=== PATIENT | female | born 1950 | race Caucasian/White ===

== ENCOUNTER 2017-01-14 20:50 | Emergency (ER) | payer MEDICARE, OTHER ==
[2017-01-14 20:59] VITALS: RESP 18; TEMP 99.6
[2017-01-14] MEDS ORDERED: SODIUM CHLORIDE 0.9% 1,000 ML IV STA (21:35)
[2017-01-14] MEDS ORDERED: ONDANSETRON 4 MG/2 ML VIAL IVP STA (21:35)
[2017-01-14] MEDS ORDERED: SODIUM CHLORIDE 0.9% 2,000 ML IV STA (21:35)
[2017-01-14] MEDS ORDERED: PANTOPRAZOLE 40 MG/10 ML VIAL IVP STA (21:35)
--- NOTE | 2017-01-14 21:41 | ED ---
General Adult HPI - General Chief complaint: Abdominal Pain Stated complaint: Vomiting/Abd Pain Time Seen by Provider: 01/14/17 21:20 Source: patient, family, RN notes reviewed, old records reviewed Mode of arrival: wheelchair Limitations: no limitations - History of Present Illness Initial comments: Chief complaint history of present illness is a 66-year-old female here with . The patient reports she's had nausea vomiting with significant lower abdominal pain starting several hours ago. She's been having difficulty having bowel movements. She has taken Dulcolax to assist without significant production. She does have history diverticulosis never has had diverticulitis. Also history of major depression. - Related Data Home Medications Medication Instructions Recorded Confirmed Atorvastatin [Lipitor] 10 mg PO HS 06/10/14 01/14/17 Calcium Carbonate/Vitamin D3 1 tab PO DAILY 06/10/14 01/14/17 [Caltrate 600 + D Tablet] Cholecalciferol [Vitamin D3] 1,000 unit PO DAILY 06/10/14 01/14/17 Levothyroxine Sodium [Synthroid] 100 mcg PO [id number] 06/10/14 01/14/17 Duglas Pro [place] 3 500 mg PO DAILY 01/14/17 01/14/17 Biotin 5 mg PO DAILY 01/14/17 01/14/17 Clopidogrel [Plavix] 75 mg PO DAILY 01/14/17 01/14/17 Deplin (Unknown Dose) 1 dose PO DAILY 01/14/17 01/14/17 LORazepam [Ativan] 0.5 mg PO DAILY 01/14/17 01/14/17 Prolia (Unknown Dose) 1 dose INJ Q180D 01/14/17 01/14/17 Vit C/E/Zn/Coppr/Lutein/Zeaxan 2 cap PO DAILY 01/14/17 01/14/17 [Preservision Areds 2 Softgel] buPROPion HCL [Wellbutrin XL] 300 mg PO QAM 01/14/17 01/14/17 busPIRone HCL [Buspar] 7.5 mg PO DAILY 01/14/17 01/14/17 Previous Rx's Medication Instructions Recorded Ondansetron Odt [Zofran ODT] 4 mg PO Q8HR PRN #5 tab 01/15/17 Allergies Allergy/AdvReac Type Severity Reaction Status Date / Time amoxicillin [Amoxicillin] Allergy Severe Nausea & Verified 01/14/17 21:09 Vomiting/ Severe Headache codeine Allergy Nausea & Verified 01/14/17 21:09 Vomiting meperidine HCl [From Demerol] Allergy Nausea & Verified 01/14/17 21:09 Vomiting Review of Systems ROS Statement: Those systems with pertinent positive or pertinent negative responses have been documented in the HPI. Review of systems. The patient is extremely dry, mild headache which is chronic. No stiff neck. No chest pain or shortness of breath. She has lower abdominal pain that doubles over in pain when he comes at home less so at this time. Having difficulty having bowel movements. Nausea and vomiting. Decreased urine output. No complaints of any numbness or tingling. All systems were reviewed. Past medical problems significant for major depression, Edgar's, macular degeneration, osteoporosis. The patient's surgeries knee Surgery tubal ligation , bilateral shoulders. Family history significant for cancers including grandfather and grandmother 1 with: The other breast cancer. Patient has ALLERGIES to amoxicillin codeine and meperidine these make her vomit. Patient quit smoking over 20 years ago denies alcohol use. ROS Other: All systems not noted in ROS Statement are negative. 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 HX EDGAR' S. ALSO CHRONIC LOW WBC'S-HAS SEEN SPECIALIST. HX MACULAR DEGENERATION-WET AMD - GETS CHECKED EVERY 2 MONTHS BY SPECIALIST-LUCENTIS INJECTION IN 01/2014 FOR BLEEDING IN EYE. HX OSTEOPOROSIS- GETS PROLIA INJ.EVERY [address] LILIAN GROVER History of Any Multi-Drug Resistant Organisms: None Reported Past Surgical History: Orthopedic Surgery, Tubal Ligation Additional Past Surgical History / Comment(s): CYNTHIA SHOULDERS - ROTATOR CUFF Past Anesthesia/Blood Transfusion Reactions: No Reported Reaction Past Psychological History: Depression Smoking Status: Former smoker Past Alcohol Use History: None Reported Additional Past Alcohol Use History / Comment(s): 4-5 X A WEEK HAS A GLASS OF WINE. SMOKED FROM AGE 18 OFF & ON- QUIT 1995 Past Drug Use History: None Reported General Exam - General Exam Comments Initial Comments: General: The patient is awake and alert, complaining of very low abdominal pain becomes severe at times. Nausea and vomiting. Vital signs temp 99.6 pulse 1:15 rate 18 pulse ox 90% room air blood pressure 140/79. Elevated systolic noted. The patient is in pain. Eye: Pupils are equal, round and reactive to light, extra-ocular movements are intact ; there is normal conjunctiva bilaterally. No signs of icterus. History of wet and deep. Ears, nose, mouth and throat: Dry mucous membranes. Dry tongue. Neck: The neck is supple, there is no tenderness , no anterior cervical lymphadenopathy. Cardiovascular: Tachycardic heart rate, 1:15. No murmur, rub or gallop is appreciated. Respiratory: Lungs are clear to auscultation, respirations are non-labored, breath sounds are equal. No wheezes, stridor, rales, or rhonchi. Gastrointestinal: Soft, non-distended, mild tenderness but no guarding with deep palpation of the lower abdomen more pain on the right than the left. Back: No complaint of back or flank pain. Musculoskeletal: Normal ROM, no tenderness, There is no pedal edema. There is no calf tenderness or swelling. Sensation intact. Neurological: No neuro deficits. Skin: Skin is warm and dry and no rashes or lesions are noted. Psychiatric: History of major depression. Not depressed now. States she's on medication which is helping. Limitations: no limitations Course Vital Signs 01/14/17 20:57 Temperature 99.6 F Pulse Rate 115 H Respiratory 18 Rate Blood Pressure 148/79 O2 Sat by Pulse 98 Oximetry Medical Decision Making - Medical Decision Making Medical decision making; patient's white count 8.8 hemoglobin 14 hematocrit 42.9 , potassium 4.0, BUN 21 creatinine 0.8 with a GFR greater than 60. Glucose 112. Urine shows 6 rbc's 1 white cell. Amylase vital for lipase mildly elevated 351 X-ray of the abdomen was done and reviewed by radiologist his impression is the bowel gas pattern is normal. There is no sign of intestinal obstruction or peritoneum. Fecal pattern is normal. There is no sign of a mass. Lung bases are clear. There are no pathologic calcifications over the kidneys. Impression ; nonacute abdomen. As read by Dr. Wilkinson CT of the abdomen was done and reviewed by radiologist significant findings include moderate colonic stool suggestive of constipation. Bowel is non- dilated. No findings to suggest acute appendicitis. A distended urinary bladder appears thin wall. No calcified bladder calcified calculi are identified. No free air. No significant fluid collections. Final impression is no acute findings. Moderate colonic stool suggestive of constipation. As read by stat rad Dr. Kellogg The patient had discussed constipation cramps she reports she's not been drinking water lately. She has been taking stool softeners which may be increasing the push through the intestine causing the acute cramps. The patient was hydrated and states she is feeling significantly better at this time. We discussed ways to manage her constipation and cramping. She'll follow -up with family physician. - Lab Data Result diagrams: 01/14/17 21:23 01/14/17 21:23 Lab Results 01/14/17 01/14/17 01/14/17 Range/Units 21:23 21:23 21:23 WBC 8.8 (3.8-10.6) k/uL RBC 4.62 (3.80-5.40) m/uL Hgb 14.2 (11.4-16.0) gm/dL Hct 42.9 (34.0-46.0) % MCV 92.8 (80.0-100.0) fL MCH 30.7 (25.0-35.0) pg MCHC 33.1 (31.0-37.0) g/dL RDW 12.1 (11.5-15.5) % Plt Count 195 (150-450) k/uL Neutrophils % 93 % Neutrophils % (Manual) 94.0 % Lymphocytes % 2 % Lymphocytes % (Manual) 1.0 % Monocytes % 2 % Monocytes % (Manual) 3.0 % Eosinophils % 2 % Eosinophils % (Manual) 2.0 % Basophils % 0 % Neutrophils # 8.2 H (1.3-7.7) k/uL Neutrophils # (Manual) 8.3 H (1.3-7.7) k/uL Lymphocytes # 0.2 L (1.0-4.8) k/uL Lymphocytes # (Manual) 0.1 L (1.0-4.8) k/uL Monocytes # 0.2 (0-1.0) k/uL Monocytes # (Manual) 0.3 (0-1.0) k/uL Eosinophils # 0.2 (0-0.7) k/uL Eosinophils # (Manual) 0.2 (0-0.7) k/uL Basophils # 0.0 (0-0.2) k/uL Nucleated RBCs 0 (0-0) /100 WBC Manual Slide Review Performed Sodium 141 (137-145) mmol/L Potassium 4.0 (3.5-5.1) mmol/L Chloride 105 (98-107) mmol/L Carbon Dioxide 25 (22-30) mmol/L Anion Gap 11 mmol/L BUN 21 H (7-17) mg/dL Creatinine 0.80 (0.52-1.04) mg/dL Est GFR (MDRD) Af Amer >60 (>60 ml/min/1.73 sqM) Est GFR (MDRD) Non-Af >60 (>60 ml/min/1.73 sqM) Glucose 112 H (74-99) mg/dL Plasma Lactic Acid Ta 1.3 (0.7-2.0) mmol/L Calcium 9.3 (8.4-10.2) mg/dL Total Bilirubin 0.7 (0.2-1.3) mg/dL AST 26 (14-36) U/L ALT 31 (9-52) U/L Alkaline Phosphatase 35 L (38-126) U/L Total Protein 6.8 (6.3-8.2) g/dL Albumin 4.3 (3.5-5.0) g/dL Amylase 104 (30-110) U/L Lipase 351 H (23-300) U/L Urine Color Urine Appearance (Clear) Urine pH (5.0-8.0) Ur Specific [place] (1.001-1.035) Urine Protein (Negative) Urine Glucose (UA) (Negative) Urine Ketones (Negative) Urine Blood (Negative) Urine Nitrate (Negative) Urine Bilirubin (Negative) Urine Urobilinogen (<2.0) mg/dL Ur Leukocyte Esterase (Negative) Urine RBC (0-5) /hpf Urine WBC (0-5) /hpf Urine Mucus (None) /hpf 01/14/17 Range/Units 21:23 WBC (3.8-10.6) k/uL RBC (3.80-5.40) m/uL Hgb (11.4-16.0) gm/dL Hct (34.0-46.0) % MCV (80.0-100.0) fL MCH (25.0-35.0) pg MCHC (31.0-37.0) g/dL RDW (11.5-15.5) % Plt Count (150-450) k/uL Neutrophils % % Neutrophils % (Manual) % Lymphocytes % % Lymphocytes % (Manual) % Monocytes % % Monocytes % (Manual) % Eosinophils % % Eosinophils % (Manual) % Basophils % % Neutrophils # (1.3-7.7) k/uL Neutrophils # (Manual) (1.3-7.7) k/uL Lymphocytes # (1.0-4.8) k/uL Lymphocytes # (Manual) (1.0-4.8) k/uL Monocytes # (0-1.0) k/uL Monocytes # (Manual) (0-1.0) k/uL Eosinophils # (0-0.7) k/uL Eosinophils # (Manual) (0-0.7) k/uL Basophils # (0-0.2) k/uL Nucleated RBCs (0-0) /100 WBC Manual Slide Review Sodium (137-145) mmol/L Potassium (3.5-5.1) mmol/L Chloride (98-107) mmol/L Carbon Dioxide (22-30) mmol/L Anion Gap mmol/L BUN (7-17) mg/dL Creatinine (0.52-1.04) mg/dL Est GFR (MDRD) Af Amer (>60 ml/min/1.73 sqM) Est GFR (MDRD) Non-Af (>60 ml/min/1.73 sqM) Glucose (74-99) mg/dL Plasma Lactic Acid Ta (0.7-2.0) mmol/L Calcium (8.4-10.2) mg/dL Total Bilirubin (0.2-1.3) mg/dL AST (14-36) U/L ALT (9-52) U/L Alkaline Phosphatase (38-126) U/L Total Protein (6.3-8.2) g/dL Albumin (3.5-5.0) g/dL Amylase (30-110) U/L Lipase (23-300) U/L Urine Color Yellow Urine Appearance Clear (Clear) Urine pH 6.5 (5.0-8.0) Ur Specific [place] 1.011 (1.001-1.035) Urine Protein Negative (Negative) Urine Glucose (UA) Negative (Negative) Urine Ketones Negative (Negative) Urine Blood Negative (Negative) Urine Nitrate Negative (Negative) Urine Bilirubin Negative (Negative) Urine Urobilinogen <2.0 (<2.0) mg/dL Ur Leukocyte Esterase Trace H (Negative) Urine RBC 6 H (0-5) /hpf Urine WBC 1 (0-5) /hpf Urine Mucus Rare H (None) /hpf Disposition Clinical Impression: Constipation by delayed colonic transit Disposition: HOME SELF-CARE Condition: Stable Instructions: Constipation (ED), High Fiber Diet (ED), Fleet Enema (ED) Additional Instructions: Increase fluid intake. Follow directions as discussed follow-up family physician Prescriptions: Ondansetron Odt [Zofran ODT] 4 mg PO Q8HR PRN #5 tab PRN Reason: Nausea Time of Disposition: 00:08
[2017-01-14 22:05] LABS: ALT 31 U/L (9-52); AST 26 U/L (14-36); Alkaline Phosphatase 35 U/L (38-126); Amylase 104 U/L (30-110); Anion Gap 11 mmol/L; Blood Urea Nitrogen 21 mg/dL (7-17); Calcium 9.3 mg/dL (8.4-10.2); Carbon Dioxide 25 mmol/L (22-30); Chloride 105 mmol/L (98-107); Glucose 112 mg/dL (74-99); Non-African American GFR(MDRD) >60 (>60 ml/min/1.73 sqM); Sodium 141 mmol/L (137-145); Total Bilirubin 0.7 mg/dL (0.2-1.3); Total Protein 6.8 g/dL (6.3-8.2)
[2017-01-14 22:06] LABS: Appearance,Urine Clear (Clear); Bilirubin,Urine Negative (Negative); Glucose,Urine (UA) Negative (Negative); Ketones,Urine Negative (Negative); Leukocyte Esterase,Urine Trace (Negative); Mucus,Urine Rare /hpf; Nitrite,Urine Negative (Negative); PH, Urine 6.5 (5.0-8.0); Particle Count 1471; Protein,Urine Negative (Negative); RBC,Urine 6 /hpf (0-5); Specific Gravity,Urine 1.011 (1.001-1.035); UA Billing (MACRO vs. MICRO) MICRO; Urobilinogen,Urine <2.0 mg/dL (<2.0); WBC,Urine 1 /hpf (0-5)
--- NOTE | 2017-01-14 22:07 | XR ---
EXAMINATION TYPE: XR abdomen 2V DATE OF EXAM: 01/14/2017 9:58 PM COMPARISON: NONE HISTORY: Abdominal pain TECHNIQUE: 2 views FINDINGS: Bowel gas pattern is normal. There is no sign of intestinal obstruction or pneumoperitoneum . Fecal pattern is normal. There is no sign of a mass. Lung bases are clear. There are no pathologic calcifications over the kidneys. IMPRESSION: Nonacute abdomen.
[2017-01-14 22:08] LABS: Basophils % (A) 0 %; CH 31.9; CHCM 34.5; Eosinophils # (A) 0.2 k/uL (0-0.7); Eosinophils % (A) 2 %; HCT 42.9 % (34.0-46.0); HDW 2.27; HGB 14.2 gm/dL (11.4-16.0); Luc # (Auto) 0.04; Luc % (Auto) 0; Lymphocytes # (A) 0.2 k/uL (1.0-4.8); Lymphocytes % (A) 2 %; MCH 30.7 pg (25.0-35.0); MCHC 33.1 g/dL (31.0-37.0); MCV 92.8 fL (80.0-100.0); Mean Platelet Volume 6.1; Monocytes # (A) 0.2 k/uL (0-1.0); Monocytes % (A) 2 %; Neutrophils # (A) 8.2 k/uL (1.3-7.7); Neutrophils % (A) 93 %; RBC 4.62 m/uL (3.80-5.40); RDW 12.1 % (11.5-15.5); WBC 8.8 k/uL (3.8-10.6); WBC (Perox) 9.01
[2017-01-14 22:47] LABS: Manual Review Performed; Nucleated Red Blood Cells 0 /100 WBC (0-0); Total Cells Counted 100
--- NOTE | 2017-01-14 23:37 | CT ---
EXAM: CT Abdomen and Pelvis Without Intravenous Contrast. CLINICAL HISTORY: Reason: Lower abdominal pain. TECHNIQUE: Axial computed tomography images of the abdomen and pelvis without intravenous contrast. CTDI is 4.90 mGy and DLP is 217.10 mGy-cm COMPARISON: No relevant prior studies available. FINDINGS: Lower thorax: Small hiatal hernia versus nonspecific thickening of the distal esophagus. ABDOMEN: Liver: Unremarkable. Gallbladder and bile ducts: Unremarkable. No calcified stones. Pancreas: Unremarkable. Spleen: Unremarkable. Adrenals: Unremarkable. Kidneys and ureters: Unremarkable. No obstructing stones. No hydronephrosis. Stomach and bowel: Moderate colonic stool is suggestive of constipation. Bowel is nondilated. Appendix: No findings to suggest acute appendicitis. PELVIS: Bladder: The distended urinary bladder appears thin-walled. No calcified bladder calculi are identified. Reproductive: Unremarkable as visualized. ABDOMEN and PELVIS: Intraperitoneal space: Unremarkable. No free air. No significant fluid collection. Bones/joints: Indeterminate sclerotic focus in the right femoral head, possibly a bone island. No acute osseous abnormality.. Soft tissues: Unremarkable. Vasculature: Unremarkable. No abdominal aortic aneurysm. Lymph nodes: Unremarkable. No enlarged lymph nodes. IMPRESSION: No acute findings. Moderate colonic stool is suggestive of constipation.
[2017-01-15 00:29] VITALS: BP 135/58; PULSE 92
== END 2017-01-15 00:29 | disposition home or self-care (01) ==
LOC: EC 20:50
DX: K59.01 Slow transit constipation (principal); E06.3 Autoimmune thyroiditis; M81.0 Age-related osteoporosis without current pathological fracture; F32.9 Major depressive disorder, single episode, unspecified; E78.5 Hyperlipidemia, unspecified; K21.9 Gastro-esophageal reflux disease without esophagitis; Z79.02 Long term (current) use of antithrombotics/antiplatelets; Z79.899 Other long term (current) drug therapy; Z88.0 Allergy status to penicillin; Z88.5 Allergy status to narcotic agent; Z87.891 Personal history of nicotine dependence
CPT/HCPCS: 36415; 80053; 82150; 83605; 83690; 85025; 81001; 87086; 74020; 74176; 99285; 96374; 96375; 96361 ×2; J2405; C9113

== ENCOUNTER → 2017-01-16 | Outpatient (CLI) | payer MEDICARE, OTHER ==
--- NOTE | 2017-01-17 14:22 | MM ---
Reason for exam: screening (asymptomatic). Last mammogram was performed 1 year and 1 month ago. History: Patient is postmenopausal. Family history of breast cancer in maternal grandmother at age 52. Physical Findings: A clinical breast exam by your physician is recommended on an annual basis and results should be correlated with mammographic findings. MG 3D Screening Mammo W/Cad Bilateral CC and MLO view(s) were taken. Prior study comparison: December 19, 2015, right breast MG 3d diag mammo w/cad RT. June 17, 2015, right breast MG work up mamm w CAD RT. The breast tissue is extremely dense which could obscure a lesion on mammography. Finding: There are stable typically benign calcifications in both breasts. No significant changes in finding since December 19, 2015 and June 17, 2015. ASSESSMENT: Benign, BI-RAD 2 RECOMMENDATION: Routine screening mammogram of both breasts in 1 year.
== END | disposition home or self-care (01) ==
LOC: RADMAMWWP 12:30
PROVIDERS: ATTEND Internal Medicine Geriatric Medicine
DX: Z12.31 Encounter for screening mammogram for malignant neoplasm of breast (principal)
CPT/HCPCS: 77063; G0202

== ENCOUNTER → 2017-06-05 | Outpatient (CLI) | payer MEDICARE, OTHER ==
--- NOTE | 2017-06-05 08:56 | US ---
EXAMINATION TYPE: US abdomen complete DATE OF EXAM: 06/05/2017 COMPARISON: CT abdomen and pelvis January 14, 2017 CLINICAL HISTORY: Gen Abd Pain R10.84. Nausea, weight loss, RUQ pain EXAM MEASUREMENTS: Liver Length: 14.5 cm Gallbladder Wall: 0.1 cm CHD: 0.6 cm Spleen: 7.0 cm Right Kidney: 9.8 x 4.3 x 3.6 cm Left Kidney: 8.1 x 4.4 x 4.6 cm suboptimal visualization due to patient body habitus Pancreas: Obscured by bowel gas Liver: wnl Gallbladder: wnl Evidence for sonographic Reyes's sign: neg CHD: wnl Spleen: suboptimal visualization due to overlying bowel gas Right Kidney: wnl Left Kidney: Dromedary hump Upper IVC: wnl Abd Aorta: no AAA seen The liver is homogenous. The intrahepatic portion of the IVC and visualized abdominal aorta shows no aneurysmal change. Diffuse atherosclerotic change is present. There is no evidence of cholelithiasi s. Common bile duct is unremarkable. The pancreas is suboptimally evaluated due to overlying bowel gas. The visualized spleen is unremarkable. Portions of spleen are obscured by bowel and lung gas. Kidneys are symmetric and free of hydronephrosis. No renal lesions are seen. IMPRESSION: Suboptimal study without significant new or acute finding seen to account for patient's s ymptoms.
== END | disposition home or self-care (01) ==
LOC: RADUSWWP 08:13
PROVIDERS: ATTEND Internal Medicine Geriatric Medicine
DX: R10.84 Generalized abdominal pain (principal)
CPT/HCPCS: 76700

== ENCOUNTER → 2018-02-26 | Outpatient (CLI) | payer MEDICARE, OTHER ==
--- NOTE | 2018-02-27 13:28 | MM ---
Reason for exam: screening (asymptomatic). Last mammogram was performed 1 year and 1 month ago. History: Patient is postmenopausal. Family history of breast cancer in maternal grandmother at age 52. Physical Findings: A clinical breast exam by your physician is recommended on an annual basis and results should be correlated with mammographic findings. MG 3D Screening Mammo W/Cad Bilateral CC and MLO view(s) were taken. Prior study comparison: January 16, 2017, bilateral MG 3d screening mammo w/cad. December 19, 2015, right breast MG 3d diag mammo w/cad RT. The breast tissue is heterogeneously dense. This may lower the sensitivity of mammography. Finding: There are typically benign round, regional and diffuse calcifications in both breasts greaster in the right breast. There is no discrete abnormality. ASSESSMENT: Benign, BI-RAD 2 RECOMMENDATION: Routine screening mammogram of both breasts in 1 year.
== END | disposition home or self-care (01) ==
LOC: RADMAMWWP 07:49
PROVIDERS: ATTEND Internal Medicine Geriatric Medicine
DX: Z12.31 Encounter for screening mammogram for malignant neoplasm of breast (principal)
CPT/HCPCS: 77063; 77067

== ENCOUNTER → 2018-11-01 | Outpatient (CLI) | payer MEDICARE, OTHER ==
[2018-11-01 16:51] LABS: T4, Free (Free Thyroxine) 1.3 ng/dL (0.80-1.80)
== END | disposition home or self-care (01) ==
LOC: LABWHC1 08:06
PROVIDERS: ATTEND Internal Medicine
DX: E03.9 Hypothyroidism, unspecified (principal)
CPT/HCPCS: 36415; 84439; 84443

== ENCOUNTER → 2019-02-27 | Outpatient (CLI) | payer MEDICARE, OTHER ==
--- NOTE | 2019-03-02 12:13 | MM ---
Reason for exam: screening (asymptomatic). Last mammogram was performed 1 year ago. History: Patient is postmenopausal. Family history of breast cancer in maternal grandmother at age 52. Physical Findings: A clinical breast exam by your physician is recommended on an annual basis and results should be correlated with mammographic findings. MG 3D Screening Mammo W/Cad Bilateral CC and MLO view(s) were taken. Prior study comparison: February 26, 2018, bilateral MG 3d screening mammo w/cad. January 16, 2017, bilateral MG 3d screening mammo w/cad. The breast tissue is heterogeneously dense. This may lower the sensitivity of mammography. Finding: There are typically benign round, linear calcifications in the right breast. There is no discrete abnormality. ASSESSMENT: Benign, BI-RAD 2 RECOMMENDATION: Routine screening mammogram of both breasts in 1 year.
== END | disposition home or self-care (01) ==
LOC: RADMAMWWP 07:18
PROVIDERS: ATTEND Internal Medicine Geriatric Medicine
DX: Z12.31 Encounter for screening mammogram for malignant neoplasm of breast (principal)
CPT/HCPCS: 77063; 77067

== ENCOUNTER 2019-03-20 06:31 | Observation (INO) | payer MEDICARE, OTHER ==
[2019-03-20 07:16] LABS: Basophils % (A) 1 %; Eosinophils # (A) 0.2 k/uL (0-0.7); Eosinophils % (A) 6 %; HGB 13.9 gm/dL (11.4-16.0); Lymphocytes # (A) 0.9 k/uL (1.0-4.8); Lymphocytes % (A) 26 %; MCH 31.4 pg (25.0-35.0); MCHC 33.2 g/dL (31.0-37.0); MCV 94.4 fL (80.0-100.0); Mean Platelet Volume 6.3; Monocytes # (A) 0.2 k/uL (0-1.0); Monocytes % (A) 7 %; Neutrophils % (A) 58 %; Platelet Count 206 k/uL (150-450); RBC 4.44 m/uL (3.80-5.40); RDW 12.3 % (11.5-15.5); WBC 3.4 k/uL (3.8-10.6)
[2019-03-20 07:26] LABS: Albumin 4.5 g/dL (3.5-5.0); Calcium 10.3 mg/dL (8.4-10.2); Potassium 4.1 mmol/L (3.5-5.1); Total Bilirubin 0.5 mg/dL (0.2-1.3)
[2019-03-20 07:27] LABS: INR 0.9 (<1.2); Partial Thromboplastin Time 22.4 sec (22.0-30.0); Prothrombin Time 9.8 sec (9.0-12.0)
--- NOTE | 2019-03-20 07:33 | XR ---
EXAMINATION TYPE: XR chest 2V DATE OF EXAM: 03/20/2019 COMPARISON: NONE HISTORY: Chest pressure and pain. TECHNIQUE: Frontal and lateral views of the chest are obtained. FINDINGS: Overlying EKG leads are seen. There is no focal air space opacity, pleural effusion, or pne umothorax seen. The cardiac silhouette size is within normal limits. The osseous structures are de mineralized. IMPRESSION: No acute process.
--- NOTE | 2019-03-20 07:35 | ED ---
Chest Pain HPI - General Chief Complaint: Chest Pain Stated Complaint: Chest Pressure Time Seen by Provider: 03/20/19 07:18 Source: patient, RN notes reviewed, old records reviewed Mode of arrival: ambulatory Limitations: no limitations - History of Present Illness Initial Comments: This is a 6-year-old female the ER for evaluation. Patient presented for evaluation of chest pain chest pain that began while she was undertaken a car trip to [place] for the weekend. This corrected with 10 hours long, [place] became nervous of chest pain. Patient resents today for evaluation of chest pain. Chest pain is fullness heaviness center of chest, patient has high blood pressure history no prior cardiac evaluation. No diaphoresis or shortness of breath noted MD Complaint: chest pain -: days(s) Onset: during rest Pain Location: substernal, left chest Pain Radiation: LUE Severity: mild Severity scale (1-10): 3 Quality: heaviness Consistency: constant Improves With: nothing Worsens With: nothing Other Symptoms: cough Treatments Prior to Arrival: none - Related Data Home Medications Medication Instructions Recorded Confirmed Calcium Carbonate/Vitamin D3 1 tab PO HS 06/10/14 03/20/19 [Caltrate 600 + D Tablet] Cholecalciferol [Vitamin D3] 1,000 unit PO HS 06/10/14 03/20/19 LORazepam [Ativan] 0.5 mg PO DAILY PRN 01/14/17 03/20/19 Vit C/E/Zn/Coppr/Lutein/Zeaxan 2 cap PO HS 01/14/17 03/20/19 [Preservision Areds 2 Softgel] Aspirin EC [Ecotrin Low Dose] 162 mg PO HS 03/20/19 03/20/19 Docusate [Colace] 100 mg PO HS 03/20/19 03/20/19 Levothyroxine Sodium [Synthroid] 75 mcg PO DAILY 03/20/19 03/20/19 Simvastatin [Zocor] 20 mg PO HS 03/20/19 03/20/19 amLODIPine [Norvasc] 2.5 mg PO HS 03/20/19 03/20/19 buPROPion HCL [Wellbutrin XL] 150 mg PO DAILY 03/20/19 03/20/19 Allergies Allergy/AdvReac Type Severity Reaction Status Date / Time amoxicillin [Amoxicillin] AdvReac Severe Nausea & Verified 03/20/19 07:34 Vomiting/ Severe Headache codeine AdvReac Nausea & Verified 03/20/19 07:34 Vomiting meperidine HCl [From Demerol] AdvReac Nausea & Verified 03/20/19 07:34 Vomiting Review of Systems ROS Statement: Those systems with pertinent positive or pertinent negative responses have been documented in the HPI. ROS Other: All systems not noted in ROS Statement are negative. 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 HX ORACIO'S. ALSO CHRONIC LOW WBC'S-HAS SEEN SPECIALIST. HX MACULAR DEGENERATION-WET AMD- GETS CHECKED EVERY 2 MONTHS BY SPECIALIST-LUCENTIS INJECTION IN 01/2014 FOR BLEEDING IN EYE. HX OSTEOPOROSIS- GETS PROLIA INJ.EVERY [address] LILIAN GROVER History of Any Multi-Drug Resistant Organisms: None Reported Past Surgical History: Orthopedic Surgery, Tubal Ligation Additional Past Surgical History / Comment(s): CYNTHIA SHOULDERS - ROTATOR CUFF Past Anesthesia/Blood Transfusion Reactions: No Reported Reaction Past Psychological History: Depression Smoking Status: Former smoker Past Alcohol Use History: None Reported Past Drug Use History: None Reported General Exam Limitations: no limitations General appearance: alert, in no apparent distress Head exam: Present: atraumatic, normocephalic, normal inspection Eye exam: Present: normal appearance, PERRL, EOMI. Absent: scleral icterus, conjunctival injection, periorbital swelling ENT exam: Present: normal exam, mucous membranes moist Neck exam: Present: normal inspection. Absent: tenderness, meningismus, lymphadenopathy Respiratory exam: Present: normal lung sounds bilaterally. Absent: respiratory distress, wheezes, rales, rhonchi, stridor Cardiovascular Exam: Present: regular rate, normal rhythm, normal heart sounds. Absent: systolic murmur, diastolic murmur, rubs, gallop, clicks GI/Abdominal exam: Present: soft, normal bowel sounds. Absent: distended, tenderness, guarding, rebound, rigid Extremities exam: Present: normal inspection, full ROM, normal capillary refill. Absent: tenderness, pedal edema, joint swelling, calf tenderness Back exam: Present: normal inspection Neurological exam: Present: alert, oriented X3, CN II-XII intact Psychiatric exam: Present: normal affect, normal mood Skin exam: Present: warm, dry, intact, normal color. Absent: rash Course Vital Signs 03/20/19 03/20/19 03/20/19 06:34 07:26 09:31 Temperature 97.9 F Pulse Rate 96 70 60 Respiratory 18 20 20 Rate Blood Pressure 200/90 198/89 168/82 O2 Sat by Pulse 99 97 98 Oximetry - Reevaluation(s) Reevaluation #1: 03/20/19 10:27 Medical record review of Reevaluation #2: 03/20/19 10:27 Patient remains a chest pain, blood pressure currently significant improved Chest Pain MDM - MDM 69 female the ER for evaluation presented today for evaluation of chest pain. Substernal chest pain. Patient blood pressure significantly elevated upon arrival now improved. Patient's troponin is negative EKG is negative, patient be admitted for cardiac observation. Critical Care Time Critical Care Time: Yes Total Critical Care Time: 31 Disposition Clinical Impression: Chest pain Disposition: ADMITTED IP TO THIS [facility] Condition: Undetermined Instructions (If sedation given, give patient instructions): Chest Pain (ED) Is patient prescribed a controlled substance at d/c from ED?: No Referrals: Masoud Peña MD [Primary Care Provider] - 1-2 days
[2019-03-20] MEDS ORDERED: SODIUM CHLORIDE 0.9% 1,000 ML IV STA (08:27)
[2019-03-20] MEDS ORDERED: LABETALOL SYRINGE 5 MG/ML IVP STA (08:27)
--- NOTE | 2019-03-20 09:25 | CT ---
EXAMINATION TYPE: CT angio chest DATE OF EXAM: 03/20/2019 COMPARISON: None HISTORY: Chest pressure and pain CT DLP: 235.2 mGycm CONTRAST: CT chest with contrast and 3D reconstruction with MIP imaging is performed with IV Contrast, patient injected with 100 mL of Isovue 370. Contrast-enhanced CT of the chest was performed through the course of the pulmonary arteries with cally g and mediastinal window settings submitted. 3D reconstruction with MIP imaging was also performed. PULMONARY ARTERIES: The pulmonary arteries and their major tributaries are patent. I do not see mike dence for sizable filling defect to suggest pulmonary embolic process. LUNGS: The lungs are clear and free of infiltrate. No evidence for atelectasis. Nonspecific 4 mm nodu lar density right lower lobe image 86. Follow-up in 6 months advised. No pleural effusion. MEDIASTINUM: Thoracic aorta is of normal caliber,however, evaluation is limited given timing of the contrast bolus. If there is concern for thoracic aortic pathology consider MELINDA. Correlate clinicall y . The heart is not enlarged. No evidence for mediastinal mass. No mediastinal lymph nodes greater than 1cm. HILAR STRUCTURES: No evidence for mass. No hilar lymph nodes greater than 1 cm. UPPER ABDOMEN: No significant abnormality is seen. IMPRESSION: 1. No evidence for Pulmonary embolism at this time. 2.Nonspecific 4 mm nodular density right lower lobe image 86. Follow-up in 6 months advised.
[2019-03-20] MEDS ORDERED: ASPIRIN 81 MG PO STA (10:28)
[2019-03-20] MEDS ORDERED: NITROGLYCERIN SL TABS 0.4 MG TAB SUBLINGUAL PRN (10:28)
[2019-03-20] MEDS ORDERED: SODIUM CHLORIDE 0.9% 1,000 ML IV SCH (10:30)
[2019-03-20] MEDS ORDERED: LORazepam 0.5 MG TAB PO PRN (12:27)
[2019-03-20 13:56] VITALS: RESP 18
[2019-03-20 15:49] VITALS: BP 162/70; PULSE 59; TEMP 98.1
--- NOTE | 2019-03-20 15:59 | P.HPIM ---
History of Present Illness H&P Date: 03/20/19 This is a 69-year-old female patient of Dr. Rodrigues with past medical history of hypertension, hyperlipidemia, generalized osteoarthritis, hypothyroidism, chronic back pain with neuropathy in the lower extremities, macular degeneration, osteoporosis, recurrent depression. Patient states that she was with her and he was driving and they were on their way to [place]. There are [address] and she developed chest pain in the midsternal area that radiated up into her neck and it didn't seem to go away. She states they were stuck in traffic and she became very concerned. She did have some nausea. She denies having any indigestion. She ate shredded wheat and a banana for breakfast. She denies having any weakness. She states she was recently started on Norvasc 2.[address] Peña for hypertension. She didn't check her blood pressure yesterday and it was within normal limits. Patient also follows with Dr. Greenfield and her Wellbutrin was decreased from 300 mg 150 mg. She follows with Dr. Hernandez De La Fuente for hypothyroidism and osteoporosis. Patient states that she has had high cholesterol for many years and did have a stress test done many years ago but no heart catheterization. Patient came into [facility] emergency center for evaluation. Her initial blood pressure was 200/90. EKG was a sinus rhythm with no acute ST-T wave changes. CT angios the chest showed no evidence of pulmonary embolism. Nonspecific 4 mm nodule density in the right lower lobe. Chest x-ray shows no acute process. Troponins have been negative on 2 draws. Patient states that her chest pain seems to be better after she received labetalol but it is still there. Review of Systems All systems: negative Constitutional: Denies anorexia, Denies chills, Denies fatigue, Denies fever, Denies lethargy, Denies malaise, Denies poor appetite, Denies weakness, Denies weight loss Eyes: denies blurred vision, denies pain Ears, nose, mouth and throat: Denies dysphagia, Denies headache, Denies hoarseness, Denies nasal congestion, Denies nasal discharge, Denies sore throat, Denies vertigo Cardiovascular: Reports chest pain, Denies dyspnea on exertion, Denies edema, Denies leg edema, Denies lightheadedness, Denies orthopnea, Denies palpitations, Denies shortness of breath, Denies syncope Respiratory: Denies cough, Denies cough with sputum, Denies dyspnea, Denies excessive sputum, Denies hemoptysis, Denies home oxygen, Denies wheezing Gastrointestinal: Denies abdominal pain, Denies diarrhea, Denies loss of appetite, Denies nausea, Denies vomiting Genitourinary: Denies dysuria, Denies hematuria, Denies urgency, Denies urinary frequency Musculoskeletal: Denies frequent falls, Denies gait dysfunction, Denies muscle weakness, Denies myalgias Integumentary: Denies pruritus, Denies rash, Denies wounds Neurological: Denies aphasia, Denies change in speech, Denies confusion, Denies headaches, Denies numbness, Denies seizures, Denies vertigo, Denies weakness Psychiatric: Denies anxiety, Denies depression Endocrine: Denies fatigue, Denies weight change Past Medical History Past Medical History: GERD/Reflux, Hyperlipidemia, Hypertension, Neurologic Disorder, Osteoarthritis (OA), Thyroid Disorder Additional Past Medical History / Comment(s): NEUROPATHY IN LOWER LEGS- HAS HX LOWER BACK PAIN-ALSO DEGENERATIVE DISC DISEASE IN CERVICAL AREA-. HX ORACIO 'S. ALSO CHRONIC LOW WBC'S-HAS SEEN SPECIALIST. HX MACULAR DEGENERATION-WET AMD- GETS CHECKED EVERY 2 MONTHS BY SPECIALIST-LUCENTIS INJECTION IN 01/2014 FOR BLEEDING IN EYE. HX OSTEOPOROSIS- GETS PROLIA INJ.EVERY [address] LILIAN GROVER History of Any Multi-Drug Resistant Organisms: None Reported Past Surgical History: Orthopedic Surgery, Tonsillectomy, Tubal Ligation Additional Past Surgical History / Comment(s): CYNTHIA SHOULDERS - ROTATOR CUFF, colonoscopy done by Dr. Mario approximate 5 years ago. Past Anesthesia/Blood Transfusion Reactions: No Reported Reaction Past Psychological History: Depression Smoking Status: Former smoker Past Alcohol Use History: None Reported Additional Past Alcohol Use History / Comment(s): Patient was a smoker occasionally socially for 10-15 years and quit in the . She drinks alcohol socially. She denies any marijuana or street drug use. She was at home with her . Past Drug Use History: None Reported - Past Family History Father Additional Family Medical History / Comment(s): Father at age 85 from polycythemia. Mother Additional Family Medical History / Comment(s): Mother at age 84 from heart failure. She had an SD at age 74 and history of gallbladder disease. Sister(s) Additional Family Medical History / Comment(s): Patient has one sister that is at age 73 with history of coronary artery disease and stent as well as gallbladder disease. One sister from suicide. Brother(s) Additional Family Medical History / Comment(s): Patient has 1 brother with no major medical problems. Patient has 2 sons and 1 daughter with no major medical problems. Medications and Allergies Home Medications Medication Instructions Recorded Confirmed Type Calcium Carbonate/Vitamin D3 1 tab PO HS 06/10/14 03/20/19 History [Caltrate 600 + D Tablet] Cholecalciferol [Vitamin D3] 1,000 unit PO HS 06/10/14 03/20/19 History LORazepam [Ativan] 0.5 mg PO DAILY PRN 01/14/17 03/20/19 History Vit C/E/Zn/Coppr/Lutein/Zeaxan 2 cap PO HS 01/14/17 03/20/19 History [Preservision Areds 2 Softgel] Aspirin EC [Ecotrin Low Dose] 162 mg PO HS 03/20/19 03/20/19 History Docusate [Colace] 100 mg PO HS 03/20/19 03/20/19 History Levothyroxine Sodium [Synthroid] 75 mcg PO DAILY 03/20/19 03/20/19 History Simvastatin [Zocor] 20 mg PO HS 03/20/19 03/20/19 History amLODIPine [Norvasc] 2.5 mg PO HS 03/20/19 03/20/19 History buPROPion HCL [Wellbutrin XL] 150 mg PO DAILY 03/20/19 03/20/19 History Allergies Allergy/AdvReac Type Severity Reaction Status Date / Time amoxicillin [Amoxicillin] AdvReac Severe Nausea & Verified 03/20/19 07:34 Vomiting/ Severe Headache codeine AdvReac Nausea & Verified 03/20/19 07:34 Vomiting meperidine HCl [From Demerol] AdvReac Nausea & Verified 03/20/19 07:34 Vomiting Physical Exam Vitals: Vital Signs Temp Pulse Resp BP Pulse Ox 03/20/19 11:08 60 20 177/88 98 03/20/19 09:31 60 20 168/82 98 03/20/19 07:26 70 20 198/89 97 03/20/19 06:34 97.9 F 96 18 200/90 99 Intake and Output 03/19/19 03/20/19 03/20/19 22:59 06:59 14:59 Other: Weight 48.081 kg Gen: This is a 69-year-old thin female. She is resting in the ER stretcher and appears to be comfortable and in no acute distress. HEENT: Head is atraumatic, normocephalic. Pupils equal, round. Sclerae is anicteric. NECK: Supple. No JVD. No lymphadenopathy. No thyromegaly. LUNGS: Clear to auscultation. No wheezes or rhonchi. No intercostal retractions. HEART: Regular rate and rhythm. No murmur. ABDOMEN: Soft. Bowel sounds are present. No masses. No tenderness. EXTREMITIES: No pedal edema. No calf tenderness. NEUROLOGICAL: Patient is awake, alert and oriented x3. Cranial nerves 2 through 12 are grossly intact. Results CBC & Chem 7: 03/20/19 07:00 03/20/19 07:00 Labs: Abnormal Lab Results - Last 24 Hours (Table) 03/20/19 03/20/19 Range/Units 07:00 07:00 WBC 3.4 L (3.8-10.6) k/uL Lymphocytes # 0.9 L (1.0-4.8) k/uL BUN 21 H (7-17) mg/dL Calcium 10.3 H (8.4-10.2) mg/dL Alkaline Phosphatase 33 L (38-126) U/L Thrombosis Risk Factor Assmnt - DVT/VTE Prophylaxis DVT/VTE Prophylaxis: Pharmacologic Prophylaxis ordered Assessment and Plan Plan: 1. Chest pain possibly secondary to hypertension.. Negative troponins 2, repeat 1 more troponin, CT negative for PE. Continue aspirin 162 mg, Lipitor. Cardiology consult. 2. Hypertensive emergency status post labetalol IV. Continue Lopressor 25 mg twice daily and Norvasc 2.5 mg at bedtime. 3. Hyperlipidemia. Continue Lipitor. 4. Recurrent depression. Continue Wellbutrin 150 mg daily. 5. Hypothyroidism. Continue levothyroxine 75 g daily. 6. Gastroesophageal reflux disease. 7. Chronic back pain secondary to degenerative disc disease and lower extremity neuropathy. 8. History of osteoporosis. 9. Remote history of tobacco use and dependence. 10. Macular degeneration. Continue PreserVision. Patient will be placed in the observation unit Discharge plan: Home in the next 24 hours. Impression and plan of care have been directed as dictated by the signing physician. Gricel Polanco nurse practitioner acting as scribe for signing physician.
[2019-03-20] MEDS ORDERED: amLODIPine 2.5 MG TAB PO SCH (21:00)
[2019-03-20] MEDS ORDERED: VIT A,C & E-LUTEIN-MINERALS 1 EACH TAB PO SCH (21:00)
[2019-03-20] MEDS ORDERED: DOCUSATE 100 MG CAP PO SCH (21:00)
[2019-03-20] MEDS ORDERED: ASPIRIN 81 MG PO SCH (21:00)
[2019-03-20] MEDS ORDERED: METOPROLOL TARTRATE 25 MG TAB PO SCH (21:00)
[2019-03-21] MEDS ORDERED: LEVOTHYROXINE 75 MCG TAB PO SCH (06:30)
[2019-03-21] MEDS ORDERED: ASPIRIN 325 MG TAB PO SCH (09:00)
[2019-03-21] MEDS ORDERED: buPROPion XL 150 MG TAB.ER.24H PO SCH (09:00)
[2019-03-21] MEDS ORDERED: ATORVASTATIN 80 MG TAB PO SCH (09:00)
== END 2019-03-20 18:02 | disposition left against medical advice (07) ==
LOC: EC 06:31 → 1SOBS 10:28
PROVIDERS: ADMIT Internal Medicine; ATTEND Internal Medicine
DX: R07.2 Precordial pain (principal); R11.0 Nausea; R05 Cough; I10 Essential (primary) hypertension; Z53.21 Procedure and treatment not carried out due to patient leaving prior to being seen by health care provider; I16.1 Hypertensive emergency; G57.90 Unspecified mononeuropathy of unspecified lower limb; E78.5 Hyperlipidemia, unspecified; E03.9 Hypothyroidism, unspecified; M15.9 Polyosteoarthritis, unspecified; G89.29 Other chronic pain; M54.5 Low back pain; M50.30 Other cervical disc degeneration, unspecified cervical region; E06.3 Autoimmune thyroiditis; D72.819 Decreased white blood cell count, unspecified; M81.0 Age-related osteoporosis without current pathological fracture; H35.3290 Exudative age-related macular degeneration, unspecified eye, stage unspecified; K21.9 Gastro-esophageal reflux disease without esophagitis; Z87.891 Personal history of nicotine dependence; Z79.899 Other long term (current) drug therapy; Z79.82 Long term (current) use of aspirin; Z79.890 Hormone replacement therapy; Z88.5 Allergy status to narcotic agent; Z88.0 Allergy status to penicillin; F33.9 Major depressive disorder, recurrent, unspecified; Z82.49 Family history of ischemic heart disease and other diseases of the circulatory system; Z81.8 Family history of other mental and behavioral disorders; Z83.2 Family history of diseases of the blood and blood-forming organs and certain disorders involving the immune mechanism
CPT/HCPCS: 96361; 96374; 99291; 36415; 93005; 83880; 80053; 83735; 84484; 85025; 85610; 85730; 71046; 71275; G0378; Q9967

== ENCOUNTER → 2019-03-27 | Outpatient (CLI) | payer MEDICARE, OTHER ==
--- NOTE | 2019-03-27 12:56 | ECHOS ---
STRESS ECHOCARDIOGRAM INDICATIONS: Chest pain. MEDICATIONS: Norvasc, Wellbutrin, atorvastatin, levothyroxine. BASELINE HEART RATE: 89 BASELINE BLOOD PRESSURE: 146/72 MAXIMUM HEART RATE: 146 MAXIMUM BLOOD PRESSURE: 207/55 85% MPHR: 128 100% MPHR: 150 METS: 6.6 MAXIMUM STAGE REACHED: II TOTAL EXERCISE TIME: 4.47 CLINICAL INFORMATION: Baseline heart rate 89 beats per minute. Baseline blood pressure 146/72 mmHg. Baseline 12-lead ECG shows normal sinus rhythm with normal cardiac intervals. There was a 0.[address] elevation inferolaterally. The patient exercised on a Morris protocol for only 4 minutes 47 seconds achieving a peak heart rate of 146 beats per minute. Hypertensive response to exercise noted. Peak blood pressure 207/55 mmHg. There was no ECG evidence for ischemia. No arrhythmias were noted. Baseline 2D echo images shows normal LV size systolic function without segmental wall motion abnormalities. At peak exercise, there was excellent augmentation of overall LV contractility without development of any wall motion abnormalities. At recovery, regional global LV systolic function remained normal. IMPRESSION: 1. Low average exercise capacity. 2. No ECG or echocardiographic evidence for ischemia at this low workload level. 3. Hypertensive response to exercise. MMODL / IJN: [id number] /
== END | disposition home or self-care (01) ==
LOC: RADNMMAIN 09:47
PROVIDERS: ATTEND Internal Medicine Geriatric Medicine
DX: R07.9 Chest pain, unspecified (principal)
CPT/HCPCS: 93351

== ENCOUNTER → 2021-01-17 | Outpatient (CLI) | payer MEDICARE, OTHER ==
--- NOTE | 2021-01-19 10:39 | MM ---
Reason for exam: screening (asymptomatic). Last mammogram was performed 1 year and 11 months ago. History: Patient is postmenopausal. Family history of breast cancer in maternal grandmother at age 52. Physical Findings: A clinical breast exam by your physician is recommended on an annual basis and results should be correlated with mammographic findings. MG 3D Screening Mammo W/Cad Bilateral CC and MLO view(s) were taken. Prior study comparison: February 27, 2019, bilateral MG 3d screening mammo w/cad. February 26, 2018, bilateral MG 3d screening mammo w/cad. The breast tissue is heterogeneously dense. This may lower the sensitivity of mammography. Stable regional punctate calcifications greater in the right breast. Inferior subareolar asymmetric density right MLO is more defined. No significant changes when compared with prior studies. ASSESSMENT: Incomplete: need additional imaging evaluation, BI-RAD 0 RECOMMENDATION: Special view mammogram of the right breast. (3D) If lesion persists on supplemental views, image directed ultrasound is recommended. [facility] will attempt to contact patient to return for supplemental views and ultrasound if indicated.
== END ==
LOC: RADMAMWWP 14:02
PROVIDERS: ATTEND Internal Medicine Geriatric Medicine
DX: Z12.31 Encounter for screening mammogram for malignant neoplasm of breast (principal); Z80.3 Family history of malignant neoplasm of breast
CPT/HCPCS: 77063; 77067

== ENCOUNTER → 2021-01-31 | Outpatient (CLI) | payer MEDICARE, OTHER ==
--- NOTE | 2021-01-31 08:25 | MM ---
Reason for exam: additional evaluation requested from abnormal screening. Last mammogram was performed less than 1 month ago. History: Patient is postmenopausal. Family history of breast cancer in maternal grandmother at age 52. Took estrogen for 1 year beginning at age 53. Took progesterone for 1 year beginning at age 53. Physical Findings: Nurse did not find any significant physical abnormalities on exam. MG 3D Work Up W/Cad RT Spot compression CC, spot compression MLO, and ML view(s) were taken of the right breast. Prior study comparison: January 17, 2021, bilateral MG 3d screening mammo w/cad. February 27, 2019, bilateral MG 3d screening mammo w/cad. The breast tissue is heterogeneously dense. This may lower the sensitivity of mammography. There is no discrete abnormality including area of concern right anterior breast. No significant new findings when compared with previous films. These results were verbally communicated with the patient and result sheet given to the patient on 01/31/21. ASSESSMENT: Benign, BI-RAD 2 RECOMMENDATION: Return to routine screening mammogram schedule for both breasts.
== END ==
LOC: RADMAMWWP 07:04
PROVIDERS: ATTEND Internal Medicine Geriatric Medicine
DX: R92.8 Other abnormal and inconclusive findings on diagnostic imaging of breast (principal); Z80.3 Family history of malignant neoplasm of breast; Z78.0 Asymptomatic menopausal state
CPT/HCPCS: 77065; G0279; 77061

== ENCOUNTER → 2021-08-15 | Outpatient (CLI) | payer MEDICARE, OTHER ==
--- NOTE | 2021-08-15 09:17 | CT ---
EXAMINATION TYPE: CT knee RT wo con DATE OF EXAM: 08/15/2021 COMPARISON: None HISTORY: Rt patella fx CT DLP: 454.3 mGycm Automated exposure control for dose reduction was used. Unenhanced CT of the right knee was performed with bone and soft tissue window settings submitted. 3-D reconstruction was obtained at a separate w orkstation. FINDINGS: There is a transverse some minimally displaced fracture involving the middle one third of the patella . Displacement of 1.5 mm. No distraction evident. Small associated joint effusion and prepatellar sof t tissue swelling. No additional fractures are identified at this time. Joint spaces are well-preserv ed. IMPRESSION: MINIMALLY DISPLACED MID PATELLAR FRACTURE.
== END | disposition home or self-care (01) ==
LOC: RADCTMAIN 07:20
PROVIDERS: ATTEND Orthopaedic Surgery
DX: S82.001A Unspecified fracture of right patella, initial encounter for closed fracture (principal)

== ENCOUNTER → 2021-09-23 | Outpatient (CLI) | payer MEDICARE, OTHER ==
[2021-09-23 11:47] LABS: Basophils # (A) 0.04 X 10*3/uL (0.00-0.10); Eosinophils # (A) 0.39 X 10*3/uL (0.04-0.35); Eosinophils % (A) 9.9 %; HCT 41.1 % (37.2-46.3); HGB 13.6 g/dL (12.0-15.0); Lymphocytes # (A) 1.23 X 10*3/uL (0.90-5.00); Lymphocytes % (A) 31.2 %; MCH 32.2 pg (27.0-32.0); MCHC 33.1 g/dL (32.0-37.0); MCV 97.2 fL (80.0-97.0); Mean Platelet Volume 9.7 fL (9.5-12.2); Monocytes # (A) 0.32 X 10*3/uL (0.20-1.00); Monocytes % (A) 8.1 %; Neutrophils # (A) 1.94 X 10*3/uL (1.80-7.70); Neutrophils % (A) 49.3 %; Platelet Count 206 X 10*3/uL (140-440); RBC 4.23 X 10*6/uL (4.10-5.20); RDW 12.2 % (11.5-14.5); WBC 3.94 X 10*3/uL (4.50-10.00)
[2021-09-23 13:44] LABS: African American GFR (CKD) 85.4 (60.0-200.0); Albumin 4.4 g/dL (3.8-4.9); Albumin/Globulin Ratio 2.32 (1.60-3.17); Anion Gap 13.4 mmol/L (4.00-12.00); BUN/Creat Ratio 14.13 Ratio (12.00-20.00); Blood Urea Nitrogen 11.3 mg/dL (9.0-27.0); Calcium 9.8 mg/dL (8.7-10.3); Carbon Dioxide 24.6 mmol/L (21.6-31.8); Chol/HDL Ratio 2.71 Ratio; Globulin 1.9 g/dL (1.6-3.3); HDL Cholesterol 73.4 mg/dL (40.00-60.00); LDL Cholesterol,Calculated 103.4 mg/dL (0.0-131.0); Non-African American GFR(CKD) 73.7 (60.0-200.0); Potassium 4.1 mmol/L (3.5-5.5); T4, Free (Free Thyroxine) 1.53 ng/dL (0.800-1.800); Total Bilirubin 0.3 mg/dL (0.30-1.20); Total Protein 6.3 g/dL (6.2-8.2); VLDL Calculation 22.2 mg/dL (5.00-40.00)
== END | disposition home or self-care (01) ==
LOC: LABWHC1 08:06
PROVIDERS: ATTEND Internal Medicine Geriatric Medicine
DX: E78.2 Mixed hyperlipidemia (principal); G45.8 Other transient cerebral ischemic attacks and related syndromes; E07.9 Disorder of thyroid, unspecified
CPT/HCPCS: 36415; 80053; 80061; 84439; 84443; 85025

== ENCOUNTER → 2021-10-27 | Outpatient (CLI) | payer MEDICARE, OTHER ==
[2021-10-27 12:20] LABS: African American GFR (CKD) 90.4 (60.0-200.0); Anion Gap 12.4 mmol/L (10.00-18.00); BUN/Creat Ratio 19.4 Ratio (12.00-20.00); Blood Urea Nitrogen 14.8 mg/dL (9.0-27.0); Carbon Dioxide 24.4 mmol/L (20.0-27.5); Potassium 4.2 mmol/L (3.5-5.5)
[2021-10-27 15:08] LABS: T4, Free (Free Thyroxine) 1.17 ng/dL (0.800-1.800)
== END | disposition home or self-care (01) ==
LOC: LABWHC1 08:09
PROVIDERS: ATTEND Internal Medicine
DX: E03.9 Hypothyroidism, unspecified (principal); E55.9 Vitamin D deficiency, unspecified; M81.0 Age-related osteoporosis without current pathological fracture
CPT/HCPCS: 36415; 80048; 82306; 82523; 84439; 84443

== ENCOUNTER → 2022-03-14 | Outpatient (CLI) | payer MEDICARE, OTHER ==
--- NOTE | 2022-03-15 11:11 | MM ---
Reason for exam: screening (asymptomatic). Last mammogram was performed 1 year and 1 month ago. History: Patient is postmenopausal. Family history of breast cancer in maternal grandmother at age 52. Took estrogen for 1 year beginning at age 53. Took progesterone for 1 year beginning at age 53. Physical Findings: A clinical breast exam by your physician is recommended on an annual basis and results should be correlated with mammographic findings. MG 3D Screening Mammo W/Cad Bilateral CC and MLO view(s) were taken. Prior study comparison: January 31, 2021, right breast MG 3d work up w/cad RT. January 17, 2021, bilateral MG 3d screening mammo w/cad. The breast tissue is heterogeneously dense. This may lower the sensitivity of mammography. No significant changes when compared with prior studies. ASSESSMENT: Benign, BI-RAD 2 RECOMMENDATION: Routine screening mammogram of both breasts in 1 year.
== END | disposition home or self-care (01) ==
LOC: RADMAMWWP 07:37
PROVIDERS: ATTEND Internal Medicine Geriatric Medicine
DX: Z12.31 Encounter for screening mammogram for malignant neoplasm of breast (principal); Z78.0 Asymptomatic menopausal state; Z80.3 Family history of malignant neoplasm of breast
CPT/HCPCS: 77063; 77067

== ENCOUNTER 2022-10-26 00:51 | Emergency (ER) | payer MEDICARE, OTHER ==
--- NOTE | 2022-10-26 02:12 | XR ---
EXAMINATION TYPE: XR wrist limited LT DATE OF EXAM: 10/26/2022 COMPARISON: NONE HISTORY: Pain TECHNIQUE: 2 views FINDINGS: There is an impacted comminuted transverse fracture of the distal radial metaphysis. There is also similar impacted fracture distal ulna metaphysis. There is also a fracture of the ulnar stylo id process. No dislocation. There is narrowing and spurring at the first carpometacarpal joint. IMPRESSION: Acute impacted comminuted fractures of the distal radius and ulna. No significant displac ement.
[2022-10-26] MEDS ORDERED: IBUPROFEN 600 MG TAB PO STA (03:17)
[2022-10-26] MEDS ORDERED: LIDOCAINE 1% INJ 10MG/ML (30 ML VIAL-PF) SQ ONE (03:17)
--- NOTE | 2022-10-26 03:38 | ED ---
Upper Extremity HPI - General Chief Complaint: Extremity Injury, Upper Stated Complaint: fall L wrist pain Time Seen by Provider: 10/26/22 02:48 Source: patient, family, RN notes reviewed Mode of arrival: wheelchair Limitations: no limitations - History of Present Illness Initial Comments: This is a 72-year-old female who presents to the emergency department for a left wrist injury. States that she has chronic insomnia and took sleeping pills tonight. She had gotten up to use the restroom, and subsequently tripped and landed on the left wrist. She believes that she was groggy from the sleeping pills and was not looking where she was going. Denies hitting her head or any loss of consciousness. Currently having severe pain and swelling over the left wrist, with difficulty moving the hand. Denies any fevers, chills, sore throat, cough, dyspnea, chest pain, palpitations, abdominal pain, nausea, vomiting, diarrhea, back pain, or he adaches. MD Complaint: Injury to:: left, wrist Place: home Context: fall - Related Data Home Medications Medication Instructions Recorded Confirmed Calcium Carbonate/Vitamin D3 1 tab PO HS 06/10/14 03/20/19 [Caltrate 600 + D Tablet] Cholecalciferol [Vitamin D3] 1,000 unit PO HS 06/10/14 03/20/19 LORazepam [Ativan] 0.5 mg PO DAILY PRN 01/14/17 03/20/19 Vit C/E/Zn/Coppr/Lutein/Zeaxan 2 cap PO HS 01/14/17 03/20/19 [Preservision Areds 2 Softgel] Aspirin EC [Ecotrin Low Dose] 162 mg PO HS 03/20/19 03/20/19 Docusate [Colace] 100 mg PO HS 03/20/19 03/20/19 Levothyroxine Sodium [Synthroid] 75 mcg PO DAILY 03/20/19 03/20/19 Simvastatin [Zocor] 20 mg PO HS 03/20/19 03/20/19 amLODIPine [Norvasc] 2.5 mg PO HS 03/20/19 03/20/19 buPROPion HCL [Wellbutrin XL] 150 mg PO DAILY 03/20/19 03/20/19 Allergies Allergy/AdvReac Type Severity Reaction Status Date / Time amoxicillin [Amoxicillin] AdvReac Severe Nausea & Verified 10/26/22 01:19 Vomiting/ Severe Headache codeine AdvReac Nausea & Verified 10/26/22 01:19 Vomiting meperidine HCl [From Demerol] AdvReac Nausea & Verified 10/26/22 01:19 Vomiting Review of Systems ROS Statement: Those systems with pertinent positive or pertinent negative responses have been documented in the HPI. ROS Other: All systems not noted in ROS Statement are negative. Past Medical History Past Medical History: GERD/Reflux, Hyperlipidemia, Hypertension, Neurologic Disorder, Osteoarthritis (OA), Thyroid Disorder Additional Past Medical History / Comment(s): NEUROPATHY IN LOWER LEGS- HAS HX LOWER BACK PAIN-ALSO DEGENERATIVE DISC DISEASE IN CERVICAL AREA-. HX ORACIO'S. ALSO CHRONIC LOW WBC'S-HAS SEEN SPECIALIST. HX MACULAR DEGENERATION-WET AMD- GETS CHECKED EVERY 2 MONTHS BY SPECIALIST-LUCENTIS INJECTION IN 01/2014 FOR BLEEDING IN EYE. HX OSTEOPOROSIS- GETS PROLIA INJ.EVERY [address] LILIAN GROVER History of Any Multi-Drug Resistant Organisms: None Reported Past Surgical History: Orthopedic Surgery, Tonsillectomy, Tubal Ligation Additional Past Surgical History / Comment(s): CYNTHIA SHOULDERS - ROTATOR CUFF, colonoscopy done by Dr. Mario approximate 5 years ago. Past Anesthesia/Blood Transfusion Reactions: No Reported Reaction Past Psychological History: Depression Smoking Status: Never smoker Past Alcohol Use History: None Reported Past Drug Use History: None Reported - Past Family History Father Additional Family Medical History / Comment(s): Father at age 85 from polycythemia. Mother Additional Family Medical History / Comment(s): Mother at age 84 from heart failure. She had an ID at age 74 and history of gallbladder disease. Sister(s) Additional Family Medical History / Comment(s): Patient has one sister that is at age 73 with history of coronary artery disease and stent as well as gallbladder disease. One sister from suicide. Brother(s) Additional Family Medical History / Comment(s): Patient has 1 brother with no major medical problems. Patient has 2 sons and 1 daughter with no major medical problems. General Exam Limitations: no limitations General appearance: alert, in no apparent distress Head exam: Present: atraumatic, normocephalic, normal inspection Respiratory exam: Present: normal lung sounds bilaterally. Absent: respiratory distress, wheezes, rales, rhonchi, stridor Cardiovascular Exam: Present: regular rate, normal rhythm, normal heart sounds. Absent: systolic murmur, diastolic murmur, rubs, gallop, clicks Extremities exam: Present: other (Dinner fork deformity to the left wrist. 2+ radial pulses and capillary refill less than 1 second. Full range of motion of all 5 digits, however range of motion of the wrist is limited due to pain.) Neurological exam: Present: alert, oriented X3, CN II-XII intact Psychiatric exam: Present: normal affect, normal mood Skin exam: Present: warm, dry, intact, normal color. Absent: rash Course Vital Signs 10/26/22 10/26/22 01:18 03:56 Temperature 98.6 F 97.8 F Pulse Rate 64 79 Respiratory 18 16 Rate Blood Pressure 158/61 174/82 O2 Sat by Pulse 99 99 Oximetry Procedures - Orthopedic Joint Reduction Joint #1 Consent Obtained: verbal consent Side: left Joint Reduction Location: wrist Analgesia: hematoma block Local Anesthetic Used: Lidocaine 1% Amount of Anesthetic Used (mLs): 3 Technique Used: direct manipulation Post-Reduction Neuro Exam: intact Post-Reduction Vascular Exam: intact Post Reduction X-Ray Obtained: No Splint Applied: Yes - Orthopedic Splinting/Casting Injury #1 Side: left Upper Extremity Injury Location: wrist Upper Extremity Immobilizer: sugar tong splint Medical Decision Making - Medical Decision Making This is a 72-year-old female who presents to the emergency department for left wrist pain after a fall. My interpretation of the wrist x-ray reveals displaced fractures of the distal radius and ulna. A hematoma block was performed and the fracture was reduced. The patient was put in a sugar tong splint and given a sling. I did recommend post reduction x-rays, however the patient declined and states that she does not want to wait for them. Risks of avoiding a post reduction x-ray reviewed, including poor healing and malunion which can lead to further complications, and she states that she is willing to accept these risks. Based on the severity of the fracture, I did offer a prescription for stronger pain medication, however the patient declined and states that she is comfortable with ibuprofen and Tylenol. Advised she alternate with ibuprofen and Tylenol. [facility] who [facility] with. Instructed her to contact their office first thing in the morning for a follow- up appointment. Signs and symptoms of compartment syndrome reviewed. Return precautions reviewed in depth, the patient is instructed to return to the emergency department with any new, worsening, or concerning symptoms. Patient verbalized understanding. This case was discussed in detail with the attending ED physician. Presentation, findings, and treatment plan discussed in detail as well. - Radiology Data Radiology results: report reviewed, image reviewed Disposition Clinical Impression: Distal radius fracture, left, Fracture of distal end of left ulna Disposition: HOME SELF-CARE Instructions (If sedation given, give patient instructions): Wrist Fracture in Adults (ED), Splint Care (ED) Additional Instructions: Return to the emergency department with any new, worsening, or concerning symptoms. Alternate with ibuprofen and Tylenol for pain relief. Contact Dr. Medley's office for a follow-up appointment in the next couple of days. Follow up with your primary care provider in 1-2 days. Is patient prescribed a controlled substance at d/c from ED?: No Referrals: None,Stated [REFERRING] - 1-2 days Scott Medley MD [STAFF PHYSICIAN] - 1-2 days
[2022-10-26 03:57] VITALS: BP 174/82; PULSE 79; RESP 16; TEMP 97.8
== END 2022-10-26 03:56 | disposition home or self-care (01) ==
LOC: EC 00:51
DX: S52.122A Displaced fracture of head of left radius, initial encounter for closed fracture (principal); S52.612A Displaced fracture of left ulna styloid process, initial encounter for closed fracture; K21.9 Gastro-esophageal reflux disease without esophagitis; E78.5 Hyperlipidemia, unspecified; I10 Essential (primary) hypertension; M19.90 Unspecified osteoarthritis, unspecified site; E07.9 Disorder of thyroid, unspecified; F32.A Depression, unspecified; Z88.0 Allergy status to penicillin; Z88.5 Allergy status to narcotic agent; Z79.890 Hormone replacement therapy; Z79.82 Long term (current) use of aspirin; Z79.899 Other long term (current) drug therapy; W01.0XXA Fall on same level from slipping, tripping and stumbling without subsequent striking against object, initial encounter
CPT/HCPCS: 73100; 25605; 99284; J2001

== ENCOUNTER → 2022-11-24 | Outpatient (CLI) | payer MEDICARE, OTHER ==
[2022-11-24 11:31] LABS: Basophils # (A) 0.04 X 10*3/uL (0.00-0.10); Basophils % (A) 1.1 %; Eosinophils # (A) 0.26 X 10*3/uL (0.04-0.35); HCT 39.8 % (37.2-46.3); Immature Grans, Automated 0.5 %; Lymphocytes # (A) 1.19 X 10*3/uL (0.90-5.00); Lymphocytes % (A) 31.8 %; MCH 31.4 pg (27.0-32.0); MCHC 32.7 g/dL (32.0-37.0); MCV 96.1 fL (80.0-97.0); Mean Platelet Volume 9.2 fL (9.5-12.2); Monocytes # (A) 0.24 X 10*3/uL (0.20-1.00); Monocytes % (A) 6.4 %; NRBC Per 100 WBC 0 /100 WBCS (0.0-0.0); Neutrophils # (A) 1.99 X 10*3/uL (1.80-7.70); Neutrophils % (A) 53.2 %; Platelet Count 232 X 10*3/uL (140-440); RBC 4.14 X 10*6/uL (4.10-5.20); RDW 12.7 % (11.5-14.5); WBC 3.74 X 10*3/uL (4.50-10.00)
[2022-11-24 11:50] LABS: African American GFR (CKD) 73.5 (60.0-200.0); Albumin 4.3 g/dL (3.8-4.9); Albumin/Globulin Ratio 2.26 (1.60-3.17); BUN/Creat Ratio 19.33 Ratio (12.00-20.00); Blood Urea Nitrogen 17.4 mg/dL (9.0-27.0); Calcium 9.7 mg/dL (8.7-10.3); Globulin 1.9 g/dL (1.6-3.3); Non-African American GFR(CKD) 63.4 (60.0-200.0); Potassium 4.3 mmol/L (3.5-5.5); T4, Free (Free Thyroxine) 1.27 ng/dL (0.800-1.800); Total Bilirubin 0.6 mg/dL (0.30-1.20); Total Protein 6.2 g/dL (6.2-8.2)
== END | disposition home or self-care (01) ==
LOC: LABWHC1 08:51
PROVIDERS: ATTEND Internal Medicine Geriatric Medicine
DX: Z00.00 Encounter for general adult medical examination without abnormal findings (principal); E03.9 Hypothyroidism, unspecified
CPT/HCPCS: 36415; 80053; 84439; 84443; 85025

== ENCOUNTER → 2023-03-20 | Outpatient (CLI) | payer MEDICARE, OTHER ==
--- NOTE | 2023-03-21 08:35 | MM ---
Reason for Exam: Screening (asymptomatic). Last mammogram was performed 1 year(s) and 1 month(s) ago. Patient History: Menarche at age 13. First Full-Term at age 19. Postmenopausal. Estrogen for 1 year from age 53 until age 54. Progesterone for 1 year from age 53 until age 54. Maternal grandmother had breast cancer, age 52. Risk Values: Lucy 5 year model risk: 1.4%. NCI Lifetime model risk: 3.3%. Prior Study Comparison: 01/17/2021 Bilateral Screening Mammogram, [facility]. 01/31/2021 Right Diagnostic Mammogram, [facility]. 03/14/2022 Bilateral Screening Mammogram, [facility]. Tissue Density: The breast tissue is heterogeneously dense. This may lower the sensitivity of mammography. Findings: Analyzed By CAD. There are tiny benign-appearing round and linear calcifications bilaterally more numerous in the right breast redemonstrated. Increasing indistinct calcifications anterior to middle depth upper right breast noted from prior mammograms. Overall Assessment: Incomplete: need additional imaging evaluation, BI-RAD 0 Management: Special View Mammogram of the right breast. Return for additional spot magnification and true lateral views right breast. Patient should continue monthly self-breast exams. A clinical breast exam by your physician is recommended on an annual basis. This exam should not preclude additional follow-up of suspicious palpable abnormalities. Note on Lucy scores and lifetime risk: 1. A Lucy score greater than 3% is considered moderate risk. If this is the case, consider specialist referral to assess eligibility for a risk reducing agent. 2. If overall lifetime risk for the development of breast cancer is 20% or higher, the patient may qualify for future screening with alternating mammogram and breast MRI. Electronically signed and approved by: Anibal Esqueda M.D.
== END | disposition home or self-care (01) ==
LOC: RADMAMWWP 13:07
PROVIDERS: ATTEND Internal Medicine Geriatric Medicine
DX: Z12.31 Encounter for screening mammogram for malignant neoplasm of breast (principal); Z78.0 Asymptomatic menopausal state
CPT/HCPCS: 77063; 77067

== ENCOUNTER → 2023-03-28 | Outpatient (CLI) | payer MEDICARE, OTHER ==
--- NOTE | 2023-03-28 09:51 | MM ---
Reason for Exam: Clinical finding. Last screening mammogram was performed less than 1 month ago. Patient History: Menarche at age 13. First Full-Term at age 19. Postmenopausal. Estrogen for 1 year from age 53 until age 54. Progesterone for 1 year from age 53 until age 54. Maternal grandmother had breast cancer, age 52. Risk Values: Lucy 5 year model risk: 1.4%. NCI Lifetime model risk: 3.3%. Tissue Density: Right: The breast tissue is heterogeneously dense. This may lower the sensitivity of mammography. Findings: Analyzed By CAD. Magnification views confirm the diffuse and regional punctate microcalcifications, benign morphology and distribution. No significant change from prior exams. Overall Assessment: Benign, BI-RAD 2 Management: Screening Mammogram of both breasts in 1 year. . Results were given to the patient verbally at the time of exam. Patient should continue monthly self-breast exams. A clinical breast exam by your physician is recommended on an annual basis. This exam should not preclude additional follow-up of suspicious palpable abnormalities. Note on Lucy scores and lifetime risk: 1. A Lucy score greater than 3% is considered moderate risk. If this is the case, consider specialist referral to assess eligibility for a risk reducing agent. 2. If overall lifetime risk for the development of breast cancer is 20% or higher, the patient may qualify for future screening with alternating mammogram and breast MRI. Electronically signed and approved by: Edu Headley M.D. Radiologist
== END ==
LOC: RADMAMWWP 08:53
PROVIDERS: ATTEND Internal Medicine Geriatric Medicine
DX: R92.0 Mammographic microcalcification found on diagnostic imaging of breast (principal); Z78.0 Asymptomatic menopausal state; Z80.3 Family history of malignant neoplasm of breast
CPT/HCPCS: 77065; G0279; 77061

== ENCOUNTER → 2024-04-01 | Outpatient (CLI) | payer MEDICARE, OTHER ==
--- NOTE | 2024-04-02 10:43 | MM ---
Reason for Exam: Screening (asymptomatic). Last screening mammogram was performed 12 month(s) ago. Patient History: Menarche at age 13. First Full-Term at age 19. Postmenopausal. Estrogen for 1 year from age 53 until age 54. Progesterone for 1 year from age 53 until age 54. Maternal grandmother had breast cancer, age 52. Risk Values: Lucy 5 year model risk: 1.4%. NCI Lifetime model risk: 3.1%. Prior Study Comparison: 03/14/2022 Bilateral Screening Mammogram, [facility]. 03/20/2023 Bilateral MG 3D screening mammo w/cad, [facility]. 03/28/2023 Right MG 3D work up w/cad RT, [facility]. Tissue Density: The breasts are heterogeneously dense, which may obscure small masses. Findings: Analyzed By CAD. Right breast: There is no suspicious group of microcalcifications or new suspicious mass. Left breast: There is no suspicious group of microcalcifications or new suspicious mass. Overall Assessment: Negative, BI-RAD 1 Management: Screening Mammogram of both breasts in [address] [facility] will attempt to contact patient to return for supplemental views and ultrasound if indicated. Patient should continue monthly self-breast exams. A clinical breast exam by your physician is recommended on an annual basis. This exam should not preclude additional follow-up of suspicious palpable abnormalities. Note on Lucy scores and lifetime risk: 1. A Lucy score greater than 3% is considered moderate risk. If this is the case, consider specialist referral to assess eligibility for a risk reducing agent. 2. If overall lifetime risk for the development of breast cancer is 20% or higher, the patient may qualify for future screening with alternating mammogram and breast MRI. Electronically signed and approved by: Kyler Carranza DO
== END | disposition home or self-care (01) ==
LOC: RADMAMWWP 12:46
PROVIDERS: ATTEND Internal Medicine Geriatric Medicine
DX: Z12.31 Encounter for screening mammogram for malignant neoplasm of breast (principal); Z78.0 Asymptomatic menopausal state; Z80.3 Family history of malignant neoplasm of breast
CPT/HCPCS: 77063; 77067

== ENCOUNTER → 2025-02-19 | Day surgery (SDC) | payer MEDICARE, OTHER ==
[2025-02-17 16:08] VITALS: BMI 18.1
[~2025-02-19] MED LIST: LIDOCAINE 1% (10MG/ML) FOR IV START INTRADERMA PRN; PROPOFOL 10 MG/ML 20 ML VIAL IV ONE
[2025-02-19] MEDS: LACTATED RINGERS 1,000 ML IV SCH (13:20)
[2025-02-19] MEDS: IV FLUID CONTINUATION 1,000 ML IV ONE (13:21)
[2025-02-19 14:03] VITALS: TEMP 98.1
--- NOTE | 2025-02-19 14:13 | P.PCN ---
Date of Procedure: 02/19/25 Procedure(s) Performed: BRIEF HISTORY: Patient is a 74-year-old pleasant white female scheduled for an elective colonoscopy as a part of screening for colon cancer. PROCEDURE PERFORMED: Colonoscopy with snare polypectomy. PREOPERATIVE DIAGNOSIS: Screening for colon cancer. IV sedation per Anesthesia. PROCEDURE: After informed consent was obtained, the patient, was brought into the endoscopy unit. IV sedation was administered by Anesthesia under continuous monitoring. Digital rectal examination was normal. Initially the Olympus CF-160 flexible video pediatric colonoscope was then inserted in the rectum, gradually advanced into the cecum with moderate to severe difficulty. Careful examination was performed as the scope was gradually being withdrawn. Ileocecal valve and the appendiceal orifice were visualized and appeared normal. Prep was excellent. Mucosa of the cecum, ascending colon, transverse colon, descending colon appeared normal. Scattered sigmoid diverticulosis seen. In the proximal sigmoid colon there was a 1 cm polyp removed by snare polypectomy. Rest of the, sigmoid colon, and rectum appeared normal. Retroflexion was performed in the rectum and no lesions were seen. The patient tolerated the procedure well. IMPRESSION: 1 cm proximal sigmoid colon polyp status post snare polypectomy Scattered diverticulosis. RECOMMENDATIONS: Findings of this examination were discussed with the patient as well as her family. She was advised to follow-up with the biopsy results. If the biopsy reveals adenoma she can have repeat colonoscopy 3 years..
[2025-02-19 14:18] VITALS: RESP 16
[2025-02-19 14:32] VITALS: BP 152/74; PULSE 74
== END ==
LOC: ORWHC2ENDO 11:25
PROVIDERS: ATTEND Internal Medicine Gastroenterology
DX: Z12.11 Encounter for screening for malignant neoplasm of colon (principal); D12.5 Benign neoplasm of sigmoid colon; K57.30 Diverticulosis of large intestine without perforation or abscess without bleeding
CPT/HCPCS: 45385; J2704; 88305

== ENCOUNTER → 2025-04-06 | Outpatient (CLI) | payer MEDICARE, OTHER ==
--- NOTE | 2025-04-06 10:53 | MM ---
Reason for Exam: Screening (asymptomatic). Last screening mammogram was performed 12 month(s) ago. Patient History: Menarche at age 13. First Full-Term at age 19. Postmenopausal. Estrogen for 1 year from age 53 until age 54. Progesterone for 1 year from age 53 until age 54. Maternal grandmother had breast cancer, age 52. Risk Values: Lucy 5 year model risk: 1.4%. NCI Lifetime model risk: 2.9%. Prior Study Comparison: 03/20/2023 Bilateral MG 3D screening mammo w/cad, [facility]. 03/28/2023 Right MG 3D work up w/cad RT, [facility]. 04/01/2024 Bilateral MG 3D screening mammo w/cad, [facility]. Tissue Density: The breasts are heterogeneously dense, which may obscure small masses. Findings: Analyzed By CAD. Right breast: There is no suspicious group of microcalcifications or new suspicious mass. Left breast: There is no suspicious group of microcalcifications or new suspicious mass. Overall Assessment: Negative, BI-RAD 1 Management: Screening Mammogram of both breasts in [address] [facility] will attempt to contact patient to return for supplemental views and ultrasound if indicated. Patient should continue monthly self-breast exams. A clinical breast exam by your physician is recommended on an annual basis. This exam should not preclude additional follow-up of suspicious palpable abnormalities. Note on Lucy scores and lifetime risk: 1. A Lucy score greater than 3% is considered moderate risk. If this is the case, consider specialist referral to assess eligibility for a risk reducing agent. 2. If overall lifetime risk for the development of breast cancer is 20% or higher, the patient may qualify for future screening with alternating mammogram and breast MRI. [facility], , 04/06/2025 10:50 AM. Electronically signed and approved by: Kyler Carranza DO
== END | disposition home or self-care (01) ==
LOC: RADMAMWWP 09:30
PROVIDERS: ATTEND Internal Medicine Geriatric Medicine
DX: Z12.31 Encounter for screening mammogram for malignant neoplasm of breast (principal); R92.333 Mammographic heterogeneous density, bilateral breasts; Z78.0 Asymptomatic menopausal state; Z80.3 Family history of malignant neoplasm of breast
CPT/HCPCS: 77063; 77067